=== PATIENT | male | born 1950 | race Caucasian/White ===

== ENCOUNTER 2016-10-14 07:37 | Day surgery (SDC) | payer OTHER ==
[2016-10-14] MEDS ORDERED: LIDOCAINE 1% 2 ML INJ ID PRN (08:17)
[2016-10-14] MEDS ORDERED: LR 1,000 ML IV ONE (08:17)
[2016-10-14] MEDS ORDERED: BUPIVACAINE 0.5% 30 ML SDV ONE (08:42)
[2016-10-14] MEDS ORDERED: MIDAZOLAM 2 MG/2 ML VIAL IVP ONE (09:10)
--- NOTE | 2016-10-14 09:10 | PDANEPAE ---
ANE History of Present Illness Left wrist arthrodesis ANE Past Medical History - Cardiovascular History Hx Hypertension: No Hx Arrhythmias: No Hx Chest Pain: No Hx Coronary Artery / Peripheral Vascular Disease: No Hx CHF / Valvular Disease: No Hx Palpitations: No - Pulmonary History Hx COPD: No Hx Asthma/Reactive Airway Disease: No Hx Recent Upper Respiratory Infection: No Hx Oxygen in Use at Home: No - Neurologic History Hx Cerebrovascular Accident: No Hx Seizures: No Hx Dementia: No - Endocrine History Hx Diabetes: No - Renal History Hx Renal Disorders: No - Liver History Hx Hepatic Disorders: No - Neurological & Psychiatric Hx Hx Neurological and Psychiatric Disorders: No - Cancer History Hx Cancer: No - Congenital Disorder History Hx Congenital Disorders: No - GI History Hx Gastrointestinal Disorders: No - Chronic Pain History Chronic Pain: Yes (OSTEOARTHRITIS) ANE Review of Systems Review of systems is: negative - Exercise capacity Exercise capacity: >=4 METS METS (RN): 4 METS - Systems Muscolosketal: Reports: joint pain (Osteoarthritis) ANE Patient History - Allergies Allergies/Adverse Reactions: benzoyl peroxide Allergy (Verified 10/13/16 16:52) formaldehyde Allergy (Verified 10/13/16 16:50) CYANOACRYLATE Allergy (Uncoded 10/13/16 16:51) - Home Medications Home Medications: CeleBREX DAILY 10/13/16 [Last Taken 10/07/16] - NPO status NPO Since - Liquids (Date): 10/14/16 NPO Since - Liquids (Time): 05:00 NPO Since - Solids (Date): 10/13/16 NPO Since - Solids (Time): 22:00 - Smoking Hx Smoking Status: Never smoked Marijuana use: No - Alcohol Use Alcohol Use: Occasionally - Family Anes Hx Family Anes Hx: none, neg - N/A ANE Labs/Vital Signs - Vital Signs Blood Pressure: 148/91 Heart Rate: 66 Respiratory Rate: 14 O2 Sat (%): 95 Height: 180.34 cm Weight: 100.698 kg ANE Physical Exam - Airway Neck exam: FROM Mallampati Score: Class 3 Mouth exam: normal dental/mouth exam, small mouth opening - Pulmonary Pulmonary: no respiratory distress - Cardiovascular Cardiovascular: regular rate and rhythym - ASA Status ASA Status: II ANE Anesthesia Plan Anesthesia Plan: GA w LMA
[2016-10-14] MEDS ORDERED: PROPOFOL 200 MG/20 ML VIAL ONE ×4 (09:25→10:59)
[2016-10-14] MEDS ORDERED: fentaNYL 100 MCG/2 ML INJ ONE ×4 (09:25→10:59)
[2016-10-14] MEDS ORDERED: PROPOFOL/EMULSION 500 MG/50 ML BOTTLE IV ONE (09:25)
[2016-10-14] MEDS ORDERED: ceFAZolin 1 GM VIAL ONE ×2 (09:28)
[2016-10-14] MEDS ORDERED: GLYCOPYRROLATE 0.2 MG/1 ML VIAL ONE (09:28)
[2016-10-14] MEDS ORDERED: DEXAMETHASONE 4 MG/ML VIAL ONE (09:28)
[2016-10-14] MEDS ORDERED: ONDANSETRON 4 MG/2 ML VIAL ONE (09:28)
[2016-10-14] MEDS ORDERED: LIDOCAINE 2% 5 ML SDV ONE (09:29)
--- NOTE | 2016-10-14 09:52 | PDGENHP ---
History and Physical - Chief Complaint osteo arthritis History Information - Allergies/Home Medication List Allergies/Adverse Reactions: benzoyl peroxide Allergy (Verified 10/13/16 16:52) formaldehyde Allergy (Verified 10/13/16 16:50) CYANOACRYLATE Allergy (Uncoded 10/13/16 16:51) Home Medications: CeleBREX DAILY 10/13/16 [Last Taken 10/07/16] I have personally reviewed and updated: family history, medical history, social history, surgical history Past Medical History: multiple orthopedic procedures - Past Medical History arthritis, degenerative disc disease - Social History Smoking Status: Never smoked Alcohol Use: Occasionally Review of Systems Cardiac: Reports: no symptoms Respiratory: Reports: no symptoms Physical Exam Temp Pulse Resp BP Pulse Ox 36.7 C 66 14 148/91 H 95 10/14/16 08:36 10/14/16 09:13 10/14/16 09:13 10/14/16 09:13 10/14/16 09:13 Cardiovascular: regular rate and rhythym Respiratory: no respiratory distress, clear to auscultation Musculoskeletal: joint effusion, joint tenderness, pain with ROM, muscular tenderness Neurologic: AAOx3 Psychiatric: interacting appropriately Assessment & Plan Assessment: Osteoarthritis of left wrist. Requires surgical intervention.
[2016-10-14] MEDS ORDERED: NALOXONE HCL 0.4 MG/ML INJ IVP PRN (10:42)
[2016-10-14] MEDS ORDERED: fentaNYL 100 MCG/2 ML INJ IVP PRN (11:03)
[2016-10-14] MEDS ORDERED: ONDANSETRON 4 MG/2 ML VIAL IVP PRN (11:03)
[2016-10-14] MEDS ORDERED: HYDROCODONE/APAP 5/325 TAB PO PRN (11:03)
[2016-10-14] MEDS ORDERED: METOCLOPRAMIDE 10 MG/2 ML VIAL IVP PRN (11:03)
[2016-10-14] MEDS ORDERED: OXYCODONE/APAP 5/325 TAB PO PRN (11:03)
[2016-10-14] MEDS ORDERED: PROMETHAZINE HCL 25 MG/ML INJ IVP PRN (11:03)
[2016-10-14] MEDS ORDERED: LR 500 ML IV PRN (11:03)
--- NOTE | 2016-10-14 11:29 | POSTOPPROG ---
Post Op Note Date of Operation: 10/14/16 Surgeon: Miah Alcocer Anesthesia: GET(General Endotracheal) Pre-op Diagnosis: Arthritis right Wrist Post-op Diagnosis: same Procedure: midcarpal arthrodesis left wrist Inf/Abcess present in the surg proc area at time of surgery?: No
[2016-10-14 11:41] VITALS: TEMP 98.4
[2016-10-14] MEDS ORDERED: OXYCODONE/APAP 5/325 TAB ONE (12:07)
--- NOTE | 2016-10-14 12:28 | POSTANESTH ---
Post Anesthetic Evaluation Cardiovascular Status: Normal, Stable Respiratory Status: Normal, Stable Level of Consciousness/Mental Status: Can Participate in Eval Pain Control: Adequate, Prn Tx Ordered Complications Possibly Related to Anesthesia: None Noted (Second stage recovery. Doing well. Will DC home)
[2016-10-14 12:55] VITALS: BP 113/68; PULSE 73; RESP 18; O2SAT 92
--- NOTE | 2016-10-14 13:50 | GOP ---
[f rep st] OPERATIVE REPORT DATE OF OPERATION: 10/14/2016 SURGEON: Miah Alcocer MD PREOPERATIVE DIAGNOSIS: Left midcarpal arthritis. POSTOPERATIVE DIAGNOSIS: Left midcarpal arthritis. PROCEDURE PERFORMED: FINDINGS: INDICATIONS: This patient had significant swelling over the dorsal aspect of the wrist which was se condary to synovitis and that secondary to degenerative change. The degenerative change at the radio carpal joint was much less significant than at the midcarpal joint. Midcarpal joint showed degenerat zeferino change which had complete articular cartilage loss and exposed subchondral bone. DESCRIPTION OF PROCEDURE: PROPOSED OPERATION: Midcarpal arthrodesis with bone graft and Acutrak screws and also synovectomy o f radiocarpal and midcarpal joints. DESCRIPTION: Under general anesthesia, the patient's left arm was prepped and draped in the usual f ashion. Arm tourniquet applied at 250 mmHg. A transverse incision was made over the midcarpal level, and skin and subcutaneous tissue were reflected. The distal extension of the extensor retinaculum w as opened, and the 4th dorsal compartment tendons were reflected ulnarly, 2nd and 3rd dorsal compart ment tendons radially, and the capsule was opened at the midcarpal joint. There was dramatic synovit is of the midcarpal joint which was excised all the way across the joint, and then the radiocarpal j oint was also inspected and was found to have degenerative change of the articular cartilage, well p reserved scapholunate and lunotriquetral ligament, but again significant synovitis which was excised with a bone rongeur and also by sharp dissection. Attention was turned to the midcarpal joint where any remaining articular cartilage at the most palm ar aspect of the capitate was removed, and then a 0.045 K-wire was used to drill subchondral bone at opposing surfaces. All drill dust was saved and used as bone graft. Then using 0.054 K-wires as brianna nicolás, the midcarpal joint was aligned very nicely, and 2 Acutrak screws were placed, both 22 mm, 1 fr om the lunate into the hamate and 1 from the scaphoid into the capitate. This locked the midcarpal j oint very solidly, and screws were advanced so that articular surface of the radiocarpal joint was n ot affected. Then 2 K-wires were placed, 1 from the capitate into the triquetrum and 1 from the capi vargas into the scaphoid helping to support the midcarpal joint. Bone graft was packed around the arth rodesis site. This bone graft being taken from bone spurs at the dorsal aspect of the midcarpal join t, ground up, and packed into the arthrodesis site. The dorsal capsule was partially reapproximated. Part of that capsule had been removed along with inflammatory synovium, and then neurovascular and tendinous structures were replaced in their anatomic position. Skin was closed at the incision as we ll as the 2 screw placement holes using horizontal mattress sutures of 5-0 Prolene. A bulky soft pre ssure dressing was applied followed by palmar based fiberglass splint held in place with an Alvin band age. Tourniquet deflation resulted in immediate pinking of the digits. He was brought to the recovery area where detailed postoperative instructions were given prior to woody harvey. A prescription for Percocet had been provided preoperatively. He was given a prescription f or Keflex and had been given 2 g of Ancef intravenously prior to commencement of surgery. Followup a rrangements for the office for about a week postop. Additional postoperative pain medication was to be provided by Dr. Nguyen. At 1 week dressing and sutures will be removed and fiberglass cast ap plied, short thumb spica style. /[id number]/MODL
== END 2016-10-14 12:45 | disposition home or self-care (01) ==
LOC: FSGY 07:37
PROVIDERS: ATTEND Specialist
PROC: 0RG Upper Joints, Fusion (ICD-10-PCS; principal; 2016-10-14 09:15)
DX: M19.032 Primary osteoarthritis, left wrist (principal)
CPT/HCPCS: 25800; C1769; C1713; J0690; J1100; J2250; J2405; J2704; J3010